=== PATIENT | female | born 1995 | race Caucasian/White ===

== ENCOUNTER 2021-01-12 03:49 | Inpatient (IN) ==
[2021-01-12] MEDS ORDERED: BUTORPHANOL 2 MG/ML VIAL IV PRN (04:07)
[2021-01-12] MEDS ORDERED: MEPERIDINE 50 MG/1 ML VIAL IV PRN (04:07)
[2021-01-12] MEDS ORDERED: ONDANSETRON 4 MG/2 ML VIAL IV PRN ×2 (04:07→11:58)
[2021-01-12] MEDS ORDERED: fentaNYL 2 MCG/ROPIV 0.2% EPID 100 ML EPIDURAL ONE (04:12)
[2021-01-12] MEDS ORDERED: CITRIC ACID/SODIUM CITRATE 30 ML UDCUP ONE (04:12)
[2021-01-12] MEDS ORDERED: ePHEDrine 50 MG/ML VIAL ONE (04:12)
[2021-01-12] MEDS ORDERED: FAMOTIDINE 20 MG/2 ML VIAL IV ONE ×2 (04:13)
[2021-01-12] MEDS ORDERED: CITRIC ACID/SODIUM CITRATE 30 ML UDCUP PO ONE (04:13)
[2021-01-12] MEDS ORDERED: ePHEDrine 50 MG/ML VIAL IV PRN (04:14)
[2021-01-12] MEDS: LACTATED RINGERS 1,000 ML IV SCH ×2 (04:14→04:55)
[2021-01-12 04:29] LABS: Basophils % 0.2 % (0.0-0.8); Eosinophils % 0.4 % (0.00-10.9); Hematocrit 33.8 VOL% (35.7-47.0); Immature Granulocytes % 0.4 %; Immature Granulocytes Absolute 0.04 #; Lymphocytes # 2.6 10*3/uL (1.4-4.0); Lymphocytes % 26.1 % (21.3-54.2); Mean Corpuscular HGB Conc 32.5 GM/DL (32-36); Mean Corpuscular Volume 90.4 FL (87-102); Mean Platelet Volume 10.6 FL (9.6-12.0); Monocytes % 9.9 % (1.7-12.7); Platelet Count 269 T/CUMM (130-400); Red Blood Count 3.74 MC/CUMM (3.8-5.5); Red Cell Distribution Width 13.4 % (9.3-17.3)
[2021-01-12] MEDS ORDERED: fentaNYL 2 MCG/ROPIV 0.2% EPID 100 ML EPIDURAL SCH (04:30)
[2021-01-12 04:45] LABS: Alanine Aminotransferase 43 U/L (13-56); Alkaline Phosphatase 148 U/L (45-117); Aspartate Amino Transferase 23 U/L (0-37); Bilirubin,Total < 0.39 MG/DL (0.20-1.00); Blood Urea Nitrogen 8 MG/DL (7-18); Calcium 9.3 MG/DL (8.5-10.1); Carbon Dioxide 21 MMOL/L (21-32); Estimated Glom Filtration Rate 130 ML/MIN; Glucose 84 MG/DL (74-106); Potassium 3.9 MMOL/L (3.5-5.1); Sodium 136 MMOL/L (136-145); Total Protein 7.1 G/DL (6.4-8.2)
[2021-01-12] MEDS ORDERED: miSOPROStoL 200 MCG TABLET ONE (08:44)
[2021-01-12] MEDS ORDERED: TRANEXAMIC ACID 1,000 MG/10 ML VIAL ONE (08:44)
[2021-01-12] MEDS ORDERED: OXYTOCIN/LR 20 UNIT/1,000 ML BAG IV ONE ×3 (08:45→11:58)
[2021-01-12] MEDS ORDERED: CARBOPROST TROMETHAMINE 250 MCG/ML AMP IM ONE (08:45)
[2021-01-12] MEDS ORDERED: SODIUM CHLORIDE 0.9% 0 ML IV ONE (08:45)
[2021-01-12] MEDS ORDERED: METHYLERGONOVINE 0.2 MG/1 ML AMP ONE (08:45)
[2021-01-12 09:00] LABS: Bilirubin,Urine Negative (Negative); Blood, Urine Negative (Negative); Glucose,Urine (UA) Negative (Negative); Ketones,Urine 5 mg/dL (Negative); Mucus,Urine Many /LPF (Occasional); Nitrite,Urine Negative (Negative); Protein,Urine 30 MG/DL; RBC,Urine 1 /HPF (0-4); Squamous Epithelial Cell,Urine Occasional /HPF (0-10); Urine Appearance CLEAR (Clear); Urine Color Yellow (Yellow); Urine Specific Gravity 1.029 (1.001-1.035); Urine Urobilinogen < 2.0 EU/DL (0.2-1.0)
[2021-01-12 11:45] LABS: Cord Venous Blood HCO3 20.6 MMOL/L; Cord Venous Blood PCO2 45.2 MMHG
[2021-01-12] MEDS ORDERED: miSOPROStoL 200 MCG TABLET PO ONE (11:53)
[2021-01-12] MEDS ORDERED: ACETAMINOPHEN 325 MG TABLET PO PRN (11:58)
[2021-01-12] MEDS ORDERED: RHO(D) IMMUNE GLOBULIN 300 MCG SYRINGE IM ONE (11:58)
[2021-01-12] MEDS ORDERED: WITCH HAZEL PADS 100/JAR TOP PRN (11:58)
[2021-01-12] MEDS ORDERED: DIPH/TET/ACEL PERT BOOSTER VACCINE 0.5 ML VIAL IM ONE (11:58)
[2021-01-12] MEDS ORDERED: BENZOCAINE 20%/MENTHOL 0.5% SPRAY 56 GM CAN TOP PRN (11:58)
[2021-01-12] MEDS ORDERED: LANOLIN 50% CREAM 0.3 OZ TUBE TOP PRN (11:58)
[2021-01-12] MEDS ORDERED: oxyCODONE/ACETAMINOPHEN 5-325 MG TABLET PO PRN (11:58)
[2021-01-12] MEDS ORDERED: BISACODYL 10 MG SUPP RECTAL PRN (11:58)
[2021-01-12] MEDS ORDERED: HYDROCORTISONE 2.5% RECTAL CREAM 30 GM TUBE TOP PRN (11:58)
[2021-01-12] MEDS ORDERED: MEASLES/MUMPS/RUBELLA VACCINE 0.5 ML VIAL SUBCUT ONE (11:58)
[2021-01-12] MEDS: IBUPROFEN 800 MG TABLET PO PRN (19:09)
[2021-01-12] MEDS: oxyCODONE/ACETAMINOPHEN 5-325 MG TABLET PO PRN (19:36)
[2021-01-12] MEDS: DOCUSATE SODIUM 100 MG CAPSULE PO SCH ×2 (19:36→20:53)
[2021-01-13] MEDS: IBUPROFEN 800 MG TABLET PO PRN ×3 (03:31→19:09)
[2021-01-13] MEDS: oxyCODONE/ACETAMINOPHEN 5-325 MG TABLET PO PRN (03:31)
[2021-01-13 06:41] LABS: Basophils % 0.3 % (0.0-0.8); Eosinophils # 0.1 10*3/uL (0.0-0.87); Eosinophils % 0.9 % (0.00-10.9); Hematocrit 30.3 VOL% (35.7-47.0); Hemoglobin 9.8 GM/DL (12.0-16.0); Immature Granulocytes % 0.4 %; Immature Granulocytes Absolute 0.05 #; Lymphocytes # 2.2 10*3/uL (1.4-4.0); Lymphocytes % 17.4 % (21.3-54.2); Mean Corpuscular HGB Conc 32.3 GM/DL (32-36); Mean Corpuscular Volume 90.7 FL (87-102); Mean Platelet Volume 10.1 FL (9.6-12.0); Monocytes % 9.8 % (1.7-12.7); Neutrophils % 71.2 % (38.7-73.9); Platelet Count 204 T/CUMM (130-400); Red Blood Count 3.34 MC/CUMM (3.8-5.5); Red Cell Distribution Width 13.8 % (9.3-17.3); White Blood Count 12.7 T/CUMM (4-12)
[2021-01-13] MEDS: DOCUSATE SODIUM 100 MG CAPSULE PO SCH ×2 (09:36→20:42)
[2021-01-14] MEDS: oxyCODONE/ACETAMINOPHEN 5-325 MG TABLET PO PRN
[2021-01-14] MEDS: IBUPROFEN 800 MG TABLET PO PRN (06:35)
[2021-01-14 07:19] VITALS: BP 136/61
[2021-01-14] MEDS: DOCUSATE SODIUM 100 MG CAPSULE PO SCH (08:18)
[2021-01-14] MEDS ORDERED: INFLUENZA VIRUS VACCINE 0.5 ML SYRINGE IM ONE (09:00)
== END 2021-01-14 12:37 | disposition home or self-care (01) | DRG 807 ==
LOC: N.LD 03:49 → N.OB 15:30
PROVIDERS: ADMIT Obstetrics & Gynecology; ATTEND Obstetrics & Gynecology

== ENCOUNTER 2021-02-16 12:39 | Observation (INO) ==
[2021-02-16 13:50] LABS: Bilirubin,Urine Negative (Negative); Blood, Urine Small mg/dL (Negative); Glucose,Urine (UA) Negative (Negative); Ketones,Urine Negative (Negative); Mucus,Urine Many /LPF (Occasional); Nitrite,Urine Negative (Negative); Protein,Urine Negative; RBC,Urine 1 /HPF (0-4); Squamous Epithelial Cell,Urine Few /HPF (0-10); Urine Appearance Slightly Hazy (Clear); Urine Color Yellow (Yellow); Urine Specific Gravity 1.016 (1.001-1.035); Urine Urobilinogen < 2.0 EU/DL (0.2-1.0)
[2021-02-16 14:16] LABS: Basophils % 0.3 % (0.0-0.8); Eosinophils # 0.1 10*3/uL (0.0-0.87); Eosinophils % 1.4 % (0.00-10.9); Hematocrit 34.4 VOL% (35.7-47.0); Hemoglobin 11.4 GM/DL (12.0-16.0); Immature Granulocytes % 0.4 %; Immature Granulocytes Absolute 0.03 #; Lymphocytes # 1.9 10*3/uL (1.4-4.0); Mean Corpuscular HGB Conc 33.1 GM/DL (32-36); Mean Corpuscular Volume 87.3 FL (87-102); Mean Platelet Volume 9.3 FL (9.6-12.0); Monocytes % 7.4 % (1.7-12.7); Neutrophils % 66.5 % (38.7-73.9); Platelet Count 272 T/CUMM (130-400); Red Blood Count 3.94 MC/CUMM (3.8-5.5); White Blood Count 7.9 T/CUMM (4-12)
[2021-02-16 14:29] LABS: Albumin 3.7 G/DL (3.4-5.0); Bilirubin,Total 0.4 MG/DL (0.20-1.00); Calcium 8.9 MG/DL (8.5-10.1); Osmolality,Calculated 275.4 MOS/KG (273-304); Potassium 3.6 MMOL/L (3.5-5.1); Total Protein 7.4 G/DL (6.4-8.2)
[2021-02-16] MEDS ORDERED: ONDANSETRON 4 MG/2 ML VIAL IV PRN (15:55)
[2021-02-16] MEDS ORDERED: ACETAMINOPHEN 325 MG TABLET PO PRN (15:55)
[2021-02-16] MEDS: PIPERACILLIN/TAZOBACTAM 3,375 MG in SODIUM CHLORIDE 0.9% 100 ML IV SCH (16:49)
[2021-02-16] MEDS: LACTATED RINGERS 1,000 ML IV SCH (21:00)
[2021-02-17] MEDS: PIPERACILLIN/TAZOBACTAM 3,375 MG in SODIUM CHLORIDE 0.9% 100 ML IV SCH ×4 (00:06→23:57)
[2021-02-17 05:23] LABS: Basophils # 0.1 10*3/uL (0.0-0.2); Basophils % 0.7 % (0.0-0.8); Eosinophils # 0.2 10*3/uL (0.0-0.87); Eosinophils % 3.4 % (0.00-10.9); Hematocrit 34.2 VOL% (35.7-47.0); Immature Granulocytes % 0.3 %; Immature Granulocytes Absolute 0.02 #; Lymphocytes # 2.6 10*3/uL (1.4-4.0); Lymphocytes % 37.9 % (21.3-54.2); Mean Corpuscular HGB Conc 32.2 GM/DL (32-36); Mean Corpuscular Volume 88.4 FL (87-102); Mean Platelet Volume 9.4 FL (9.6-12.0); Monocytes % 7.3 % (1.7-12.7); Neutrophils % 50.4 % (38.7-73.9); Platelet Count 236 T/CUMM (130-400); Red Blood Count 3.87 MC/CUMM (3.8-5.5); Red Cell Distribution Width 13.3 % (9.3-17.3)
[2021-02-17] MEDS: LACTATED RINGERS 1,000 ML IV SCH ×4 (05:41→23:18)
[2021-02-17 05:47] LABS: Albumin 3.3 G/DL (3.4-5.0); Bilirubin,Total 1.1 MG/DL (0.20-1.00); Calcium 8.7 MG/DL (8.5-10.1); Osmolality,Calculated 279.1 MOS/KG (273-304); Potassium 3.4 MMOL/L (3.5-5.1); Total Protein 6.6 G/DL (6.4-8.2)
[2021-02-17] MEDS ORDERED: SERTRALINE 50 MG TABLET PO SCH (21:00)
[2021-02-18 05:20] LABS: Basophils % 0.6 % (0.0-0.8); Eosinophils # 0.5 10*3/uL (0.0-0.87); Eosinophils % 7.3 % (0.00-10.9); Hematocrit 34.1 VOL% (35.7-47.0); Immature Granulocytes % 0.2 %; Immature Granulocytes Absolute 0.01 #; Lymphocytes # 2.5 10*3/uL (1.4-4.0); Lymphocytes % 40.1 % (21.3-54.2); Mean Corpuscular HGB Conc 32.3 GM/DL (32-36); Mean Corpuscular Volume 89.3 FL (87-102); Mean Platelet Volume 9.5 FL (9.6-12.0); Monocytes % 9.7 % (1.7-12.7); Neutrophils % 42.1 % (38.7-73.9); Platelet Count 254 T/CUMM (130-400); Red Blood Count 3.82 MC/CUMM (3.8-5.5); Red Cell Distribution Width 13.3 % (9.3-17.3); White Blood Count 6.2 T/CUMM (4-12)
[2021-02-18 05:47] LABS: Albumin 3.2 G/DL (3.4-5.0); Bilirubin,Total 0.9 MG/DL (0.20-1.00); Calcium 8.7 MG/DL (8.5-10.1); Osmolality,Calculated 278.3 MOS/KG (273-304); Potassium 3.3 MMOL/L (3.5-5.1); Total Protein 6.5 G/DL (6.4-8.2)
[2021-02-18] MEDS ORDERED: INDOCYANINE GREEN 25 MG VIAL IV ONE (06:00)
[2021-02-18] MEDS: LACTATED RINGERS 1,000 ML IV SCH ×3 (06:20→14:09)
[2021-02-18] MEDS: PIPERACILLIN/TAZOBACTAM 3,375 MG in SODIUM CHLORIDE 0.9% 100 ML IV SCH (08:25)
[2021-02-18] MEDS ORDERED: TISSUE ADHESIVE 1 EACH APPLICATOR TOP ONE (08:32)
[2021-02-18] MEDS ORDERED: LIDOCAINE 1%/EPI INJ 20 ML VIAL ONE (08:32)
[2021-02-18] MEDS ORDERED: BUPIVACAINE MPF 0.25% 30 ML VIAL ONE (08:32)
[2021-02-18] MEDS ORDERED: fentaNYL 100 MCG/2 ML VIAL ONE (08:36)
[2021-02-18] MEDS ORDERED: MIDAZOLAM 2 MG/2 ML VIAL ONE (08:36)
[2021-02-18] MEDS ORDERED: GLYCOPYRROLATE 0.4 MG/2 ML VIAL ONE (09:32)
[2021-02-18] MEDS ORDERED: SUCCINYLCHOLINE 200 MG/10 ML VIAL ONE (09:32)
[2021-02-18] MEDS ORDERED: ROCURONIUM 50 MG/5 ML VIAL IV ONE (09:32)
[2021-02-18] MEDS ORDERED: DEXAMETHASONE 4 MG/1 ML VIAL ONE (09:32)
[2021-02-18] MEDS ORDERED: ONDANSETRON 4 MG/2 ML VIAL ONE (09:32)
[2021-02-18] MEDS ORDERED: LIDOCAINE 2% 5 ML VIAL ONE (09:32)
[2021-02-18] MEDS ORDERED: SEVOFLURANE 1 UNIT/15 MINUTE INH ONE (09:32)
[2021-02-18] MEDS ORDERED: propofoL 200 MG/20 ML VIAL IV ONE (09:32)
[2021-02-18] MEDS ORDERED: ONDANSETRON 4 MG/2 ML VIAL IV PRN (10:14)
[2021-02-18] MEDS ORDERED: HYDROmorphone 2 MG/1 ML VIAL IV PRN (10:14)
[2021-02-18 13:35] VITALS: BP 134/83
== END 2021-02-18 14:06 | disposition home or self-care (01) ==
LOC: N.ED 12:39 → INTOOBSV 15:55 → N.EDINP 15:55 → N.3E 18:13
PROVIDERS: ADMIT Surgery; ATTEND Surgery